=== PATIENT | female | born 1975 | race Caucasian/White ===

== ENCOUNTER → 2016-09-23 | Outpatient (REF) | payer OTHER | LOC: M LAB REF 10:22 | PROVIDERS: ATTEND Physician Assistant | DX: J03.90 Acute tonsillitis, unspecified (principal) ==

== ENCOUNTER → 2019-08-02 | Outpatient (REF) | payer OTHER | LOC: M LAB REF 13:01 | PROVIDERS: ATTEND Family Medicine | DX: Z12.4 Encounter for screening for malignant neoplasm of cervix (principal) | CPT/HCPCS: 87624; G0123 ==

== ENCOUNTER → 2020-08-07 | Outpatient (CLI) | payer OTHER | LOC: M LABSMTC 14:27 | PROVIDERS: ATTEND Family Medicine | DX: Z20.822 Contact with and (suspected) exposure to COVID-19 (principal) ==

== ENCOUNTER 2020-11-01 11:56 | Emergency (ER) | payer OTHER ==
[~2020-11-01] VITALS: Ht 162.6 cm; Wt 88.6 kg
[2020-11-01] MEDS ORDERED: FLUO40CA (12:06)
[2020-11-01] MEDS ORDERED: GABA-282 (12:06)
[2020-11-01] MEDS ORDERED: ALBU8.5H (12:06)
[2020-11-01] MEDS ORDERED: FLUORESCEIN OPHTH 1 MG STRIP OD ONE (13:55)
[2020-11-01] MEDS ORDERED: TETRACAINE 0.5% OPHTH SOLN 4ML OD ONE (13:55)
[2020-11-01] MEDS ORDERED: BOOSTRIX/ADACEL VACCINE (DIPHTH/PERTUSS/ACELL/TETANUS) 0.5ML SYR IM ONE (14:30)
[2020-11-01] MEDS ORDERED: IBUPROFEN 800 MG TAB PO ONE (14:30)
[2020-11-01] MEDS ORDERED: CIPR0.3S6 OD (15:14)
[2020-11-01] MEDS ORDERED: ERYT5OIN25 OD (15:57)
[2020-11-01 16:10] VITALS: BP 148/91
== END 2020-11-01 16:14 | disposition home or self-care (01) ==
LOC: M ED 11:56
DX: S05.01XA Injury of conjunctiva and corneal abrasion without foreign body, right eye, initial encounter (principal); W54.8XXA Other contact with dog, initial encounter; Y92.9 Unspecified place or not applicable; Y93.9 Activity, unspecified; Y99.9 Unspecified external cause status; Z88.1 Allergy status to other antibiotic agents; Z88.2 Allergy status to sulfonamides; Z88.6 Allergy status to analgesic agent; Z88.8 Allergy status to other drugs, medicaments and biological substances

== ENCOUNTER → 2021-04-19 | Outpatient (REF) | payer OTHER ==
[~2021-04-19] MED LIST: ALBU8.5H; CIPR0.3S6 OD; ERYT5OIN25 OD; FLUO40CA; GABA-282
== END ==
LOC: M LAB REF 17:14
PROVIDERS: ATTEND Family Medicine
DX: N39.0 Urinary tract infection, site not specified (principal)

== ENCOUNTER → 2021-08-11 | Outpatient (CLI) | payer OTHER | LOC: M SOG 15:31 | PROVIDERS: ATTEND Orthopaedic Surgery | DX: M54.50 Low back pain, unspecified (principal) ==

== ENCOUNTER → 2021-08-25 | Outpatient (CLI) | payer OTHER | LOC: M PLAIMG 12:58 | PROVIDERS: ATTEND Orthopaedic Surgery | DX: M51.37 Other intervertebral disc degeneration, lumbosacral region (principal); M51.27 Other intervertebral disc displacement, lumbosacral region; M43.17 Spondylolisthesis, lumbosacral region; M51.16 Intervertebral disc disorders with radiculopathy, lumbar region; M46.96 Unspecified inflammatory spondylopathy, lumbar region; M48.061 Spinal stenosis, lumbar region without neurogenic claudication ==

== ENCOUNTER → 2022-07-26 | Outpatient (CLI) | payer OTHER ==
[2022-07-26 10:31] LABS: BASO % 0.3 % (0.0-1.0); EOS # 0.1 10^3/uL (0.0-0.5); EOS % 0.6 % (0.0-3.0); HEMATOCRIT 42.6 % (36.0-47.0); LYMPH % 29.2 % (24.0-44.0); MEAN CORPUSCULAR HGB CONC 32.9 g/dl (32.0-36.5); MEAN CORPUSCULAR VOLUME 88.4 fl (80.0-96.0); MONO # 0.8 10^3/uL (0.0-0.8); MONO % 7.5 % (2.0-8.0); NEUTROPHILS # 6.4 10^3/uL (1.5-8.5); NEUTROPHILS % 61.8 % (36.0-66.0); PLATELET COUNT, AUTOMATED 263 10^3/uL (150-450); RED BLOOD COUNT 4.82 10^6/uL (4.00-5.40); WHITE BLOOD COUNT 10.3 10^3/uL (4.0-10.0)
[2022-07-26 10:40] LABS: ALBUMIN 3.4 G/DL (3.2-5.2); ALKALINE PHOSPHATASE 65 U/L (46-116); ALT/SGPT 23 U/L (7.0-40); AST/SGOT 13 U/L (<34); BILIRUBIN,TOTAL 0.8 MG/DL (0.3-1.2); BLOOD UREA NITROGEN 14 MG/DL (9-23); CARBON DIOXIDE LEVEL 30 MMOL/L (20-31); CHLORIDE LEVEL 102 MMOL/L (98-107); CHOLESTEROL LEVEL 191 MG/DL (<200); CHOLESTEROL RISK RATIO 4.16 (<5); CREATININE FOR GFR 0.78 MG/DL (0.55-1.30); GLOMERULAR FILTRATION RATE > 60.0 (>58); GLUCOSE, FASTING 83 MG/DL (60-100); HDL CHOLESTEROL 45.9 MG/DL (>40); LDL CHOLESTEROL 120.7 MG/DL (<100); NON-HDL-C 145 MG/DL; POTASSIUM SERUM 4.2 MMOL/L (3.5-5.1); SODIUM LEVEL 138 MMOL/L (136-145); TOTAL PROTEIN 6.7 G/DL (5.7-8.2); TRIGLYCERIDES LEVEL 122 MG/DL (<150)
[2022-07-26 10:42] LABS: THYROID STIMULATING HORMONE 1.489 uIU/ML (0.55-4.78); TOTAL 25(OH) VITAMIN D 20.8 NG/ML (20.0-100.0)
== END ==
LOC: M PLALAB 08:32
PROVIDERS: ATTEND Nurse Practitioner Family
DX: R53.83 Other fatigue (principal); R63.5 Abnormal weight gain

== ENCOUNTER → 2022-12-16 | Outpatient (CLI) | payer OTHER ==
[~2022-12-16] MED LIST changes: +CIPR0.3S37 OD; -CIPR0.3S6 OD
== END ==
LOC: M PLAIMG 06:36
DX: M54.50 Low back pain, unspecified (principal)

== ENCOUNTER → 2023-04-24 | Outpatient (CLI) | payer OTHER | LOC: M SLEEP HO 10:43 | PROVIDERS: ATTEND Nurse Practitioner Family | DX: R40.0 Somnolence (principal) ==

== ENCOUNTER → 2023-05-11 | Outpatient (CLI) | payer OTHER ==
[2023-05-11 12:49] LABS: BASO % 0.3 % (0.0-1.0); EOS # 0.1 10^3/uL (0.0-0.5); EOS % 0.7 % (0.0-3.0); HEMATOCRIT 41.6 % (36.0-47.0); HEMOGLOBIN 13.8 g/dl (12.0-15.5); LYMPH # 2.9 10^3/uL (1.5-5.0); LYMPH % 29.6 % (24.0-44.0); MEAN CORPUSCULAR HEMOGLOBIN 29.2 pg (27.0-33.0); MEAN CORPUSCULAR HGB CONC 33.2 g/dl (32.0-36.5); MEAN CORPUSCULAR VOLUME 87.9 fl (80.0-96.0); MONO # 0.6 10^3/uL (0.0-0.8); MONO % 6.2 % (2.0-8.0); NEUTROPHILS % 62.8 % (36.0-66.0); PLATELET COUNT, AUTOMATED 278 10^3/uL (150-450); RED BLOOD COUNT 4.73 10^6/uL (4.00-5.40); WHITE BLOOD COUNT 9.6 10^3/uL (4.0-10.0)
[2023-05-11 13:17] LABS: FOLLICLE STIMULATING HORMONE 2.7 mIU/ML
[2023-05-11 13:18] LABS: PROLACTIN 12.02 NG/ML; THYROID STIMULATING HORMONE 2.648 uIU/ML (0.55-4.78)
[2023-05-11 13:19] LABS: FREE T4 0.93 NG/DL (0.89-1.76)
== END ==
LOC: M LAB 08:03 → M PLALAB 08:03
PROVIDERS: ATTEND Nurse Practitioner Family
DX: N92.6 Irregular menstruation, unspecified (principal)

== ENCOUNTER → 2023-05-12 | Outpatient (CLI) | payer OTHER | LOC: M RAD 10:23 | PROVIDERS: ATTEND Nurse Practitioner Family | DX: N92.6 Irregular menstruation, unspecified (principal); N88.8 Other specified noninflammatory disorders of cervix uteri; D25.9 Leiomyoma of uterus, unspecified ==

== ENCOUNTER → 2023-06-13 | Outpatient (CLI) | payer OTHER | LOC: M SLEEP 20:00 | PROVIDERS: ATTEND Nurse Practitioner Family | DX: G47.33 Obstructive sleep apnea (adult) (pediatric) (principal) ==

== ENCOUNTER → 2023-11-14 | Outpatient (CLI) | payer OTHER ==
[~2023-11-14] MED LIST changes: +BUPR-71 PO; -FLUO40CA; +FLUO40CA PO; -GABA-282; +GABA-282 PO; +LOSA25TA13 PO; +MONT10TA97 PO; +NORE0.353 PO; +PRAM0.123 PO
[2023-11-14 11:14] LABS: APPEARANCE, URINE HAZY (CLEAR); BACTERIA, URINE AUTO NEGATIVE (NEGATIVE); BASO % 0.3 % (0.0-1.0); BILIRUBIN, URINE AUTO NEGATIVE (NEGATIVE); BLOOD, URINE BLOOD 1+ (NEGATIVE); COLOR, URINE YELLOW (YELLOW); EOS # 0.1 10^3/uL (0.0-0.5); EOS % 0.7 % (0.0-3.0); GLUCOSE, URINE (UA) AUTO NEGATIVE (NEGATIVE); HEMATOCRIT 31.3 % (36.0-47.0); HEMOGLOBIN 10.2 g/dl (12.0-15.5); KETONE, URINE AUTO NEGATIVE (NEGATIVE); LEUKOCYTE ESTERASE, URINE AUTO NEGATIVE (NEGATIVE); LYMPH # 2.1 10^3/uL (1.5-5.0); LYMPH % 31.9 % (24.0-44.0); MEAN CORPUSCULAR HEMOGLOBIN 29.5 pg (27.0-33.0); MEAN CORPUSCULAR HGB CONC 32.6 g/dl (32.0-36.5); MEAN CORPUSCULAR VOLUME 90.5 fl (80.0-96.0); MONO # 0.5 10^3/uL (0.0-0.8); MONO % 7.3 % (2.0-8.0); MUCUS, URINE SMALL (NEGATIVE); NEUTROPHILS % 59.4 % (36.0-66.0); NITRITE, URINE AUTO NEGATIVE (NEGATIVE); PLATELET COUNT, AUTOMATED 266 10^3/uL (150-450); PROTEIN, URINE AUTO NEGATIVE (NEGATIVE); RBC, URINE AUTO 2 /HPF (0-3); RED BLOOD COUNT 3.46 10^6/uL (4.00-5.40); SPECIFIC GRAVITY URINE AUTO 1.024 (1.002-1.035); SQUAMOUS EPITHELIAL CELL UR AU 2 /HPF (0-6); UROBILINOGEN, URINE AUTO 0.2 mg/dL (0.0-2.0); WBC, URINE AUTO 2 /HPF (0-3); WHITE BLOOD COUNT 6.7 10^3/uL (4.0-10.0)
[2023-11-14 11:40] LABS: ALBUMIN 3.3 G/DL (3.2-5.2); ALKALINE PHOSPHATASE 61 U/L (46-116); ALT/SGPT 24 U/L (7.0-40); AST/SGOT 15 U/L (<34); BILIRUBIN,TOTAL 0.6 MG/DL (0.3-1.2); BLOOD UREA NITROGEN 17 MG/DL (9-23); CALCIUM LEVEL 8.9 MG/DL (8.5-10.1); CARBON DIOXIDE LEVEL 28 MMOL/L (20-31); CHLORIDE LEVEL 102 MMOL/L (98-107); CHOLESTEROL LEVEL 171 MG/DL (<200); CHOLESTEROL RISK RATIO 3.59 (<5); CREATININE FOR GFR 0.84 MG/DL (0.55-1.30); GLOMERULAR FILTRATION RATE > 60.0 (>58); GLUCOSE, FASTING 86 MG/DL (60-100); HDL CHOLESTEROL 47.6 MG/DL (>40); LDL CHOLESTEROL 100.4 MG/DL (<100); NON-HDL-C 123.4 MG/DL; POTASSIUM SERUM 4.1 MMOL/L (3.5-5.1); SODIUM LEVEL 137 MMOL/L (136-145); TOTAL PROTEIN 6.3 G/DL (5.7-8.2); TRIGLYCERIDES LEVEL 115 MG/DL (<150)
[2023-11-14 11:42] LABS: FREE T4 0.95 NG/DL (0.89-1.76); THYROID STIMULATING HORMONE 1.609 uIU/ML (0.55-4.78)
== END ==
LOC: M PLALAB 08:34
PROVIDERS: ATTEND Nurse Practitioner Family
DX: Z01.818 Encounter for other preprocedural examination (principal); I10 Essential (primary) hypertension

== ENCOUNTER 2023-12-01 10:09 | Observation (INO) | payer OTHER ==
[2023-12-01] VITALS (8 sets, daily range): BP systolic 115–138; BP diastolic 64–80; TEMP 97.4–98.1; O2SAT 96–99
[~2023-12-01] VITALS: Ht 160 cm; Wt 94.7 kg
[~2023-12-01 10:09] MED LIST changes: +KETOROLAC 60MG 2ML VIAL As Ordered ONE; +LIDOCAINE 2% 100MG/5ML SDV (FOR ANES.) As Ordered ONE; +METOCLOPRAMIDE INJ 10MG/2ML VIAL As Ordered ONE; +MIDAZOLAM INJ 2MG/2ML VIAL As Ordered ONE; +ONDANSETRON 4MG 2ML VIAL As Ordered ONE; +ROCURONIUM BROMIDE 50MG/5ML VIAL As Ordered ONE; +SUGAMMADEX SODIUM 500 MG/5 ML VIAL (BRIDION) As Ordered ONE; +dexmedeTOMIDine (4MCG/ML)200MCG/50ML BTL (PRECEDEX) As Ordered ONE; +fentaNYL 250 MCG/5 ML INJECTION As Ordered ONE; +propofoL 200 MG/20 ML VIAL As Ordered ONE
[2023-12-01 10:45] LABS: HEMATOCRIT 34.3 % (36.0-47.0); HEMOGLOBIN 11.3 g/dl (12.0-15.5); MEAN CORPUSCULAR HEMOGLOBIN 28.3 pg (27.0-33.0); MEAN CORPUSCULAR HGB CONC 32.9 g/dl (32.0-36.5); PLATELET COUNT, AUTOMATED 308 10^3/uL (150-450); RED BLOOD COUNT 3.99 10^6/uL (4.00-5.40); WHITE BLOOD COUNT 9.3 10^3/uL (4.0-10.0)
[2023-12-01] MEDS ORDERED: CEFD1CAP9 PO (10:46)
[2023-12-01] MEDS ORDERED: LR 1,000 ML IV SCH ×4 (10:55→14:15)
[2023-12-01] MEDS: ceFAZolin SOD 2 GM in IV 1 EA IV ONE (11:30)
[2023-12-01] MEDS ORDERED: ACETAMINOPHEN 1000MG 100ML IV BAG As Ordered ONE (11:45)
[2023-12-01] MEDS ORDERED: HYDROMORPHONE HCL 0.5 MG/ 0.5 ML SYRINGE IV PRN (13:55)
[2023-12-01] MEDS ORDERED: fentaNYL 100 MCG/2 ML INJECTION IV PRN (13:55)
[2023-12-01] MEDS ORDERED: oxyCODONE 5MG TAB PO PRN (13:55)
[2023-12-01] MEDS ORDERED: ONDANSETRON 4MG 2ML VIAL IV PRN ×2 (13:55→14:15)
[2023-12-01] MEDS ORDERED: PERCOCET 5MG/325MG TAB PO PRN ×2 (14:15)
[2023-12-01] MEDS ORDERED: diphenhydrAMINE 25MG CAP PO PRN (15:40)
[2023-12-01] MEDS ORDERED: ALBUTEROL 90 MCG/ACT 8GM HFA INHALER INH PRN (15:40)
[2023-12-01] MEDS ORDERED: PRAMIPEXOLE (MIRAPEX) 0.125 MG TAB PO SCH ×2 (16:00→21:00)
[2023-12-01] MEDS: traMADol 50 MG TAB PO PRN (16:16)
[2023-12-01] MEDS: KETOROLAC 30 MG/ML 1ML VIAL IV PRN (19:49)
[2023-12-01] MEDS ORDERED: buPROPion 75 MG TAB PO SCH (21:00)
[2023-12-01] MEDS: DOCUSATE SODIUM 100MG CAPSULE PO SCH (21:09)
[2023-12-01] MEDS: ceFAZolin SOD 1 GM in D5W MINI-BAG PLUS 50 ML IV SCH (21:10)
[2023-12-01] MEDS: LOSARTAN 25 MG TAB PO SCH (22:00)
[2023-12-01] MEDS: MONTELUKAST 10 MG TAB PO SCH (22:09)
[2023-12-01] MEDS: FLUoxetine 20MG CAP PO SCH (22:09)
[2023-12-01] MEDS: PRAMIPEXOLE (MIRAPEX) 0.125 MG TAB PO SCH (22:29)
[2023-12-01] MEDS: buPROPion **SR TABLET** (ZYBAN) 150MG PO SCH (22:30)
[2023-12-02 02:00] VITALS: BP 111/65; TEMP 97.5; O2SAT 97
[2023-12-02 06:00] VITALS: BP 113/58; TEMP 98.4; O2SAT 98
[2023-12-02 07:09] LABS: HEMATOCRIT 29.8 % (36.0-47.0); HEMOGLOBIN 9.4 g/dl (12.0-15.5); MEAN CORPUSCULAR HEMOGLOBIN 27.8 pg (27.0-33.0); MEAN CORPUSCULAR HGB CONC 31.5 g/dl (32.0-36.5); MEAN CORPUSCULAR VOLUME 88.2 fl (80.0-96.0); PLATELET COUNT, AUTOMATED 266 10^3/uL (150-450); RED BLOOD COUNT 3.38 10^6/uL (4.00-5.40); WHITE BLOOD COUNT 13.3 10^3/uL (4.0-10.0)
[2023-12-02] MEDS ORDERED: LOSARTAN 25 MG TAB PO SCH ×2 (09:00)
[2023-12-02] MEDS ORDERED: MONTELUKAST 10 MG TAB PO SCH (09:00)
[2023-12-02] MEDS ORDERED: buPROPion 75 MG TAB PO SCH (09:00)
[2023-12-02] MEDS ORDERED: TRAM50TA2 PO (09:48)
[2023-12-02] MEDS ORDERED: IBUP-1022 PO (09:48)
[2023-12-02] MEDS ORDERED: MACR100C43 PO (09:50)
[2023-12-02] MEDS ORDERED: COLA100C5 PO (09:51)
[2023-12-02 10:00] VITALS: BP 114/66; TEMP 98.7; O2SAT 95
== END 2023-12-02 11:45 | disposition home or self-care (01) ==
LOC: M SDC 10:09 → M RR INP 14:15 → M OBS 15:26
PROVIDERS: ADMIT Specialist; ATTEND Specialist
DX: D25.9 Leiomyoma of uterus, unspecified (principal); N73.6 Female pelvic peritoneal adhesions (postinfective); N99.71 Accidental puncture and laceration of a genitourinary system organ or structure during a genitourinary system procedure; I10 Essential (primary) hypertension; F41.9 Anxiety disorder, unspecified; F32.A Depression, unspecified; G47.33 Obstructive sleep apnea (adult) (pediatric); Z79.51 Long term (current) use of inhaled steroids; Z79.899 Other long term (current) drug therapy; Z88.2 Allergy status to sulfonamides; Z88.8 Allergy status to other drugs, medicaments and biological substances; Z88.0 Allergy status to penicillin
CPT/HCPCS: 36415; 58571; 85027; 86850; 86900; 86901; 88307; 96365; 96366; 96375; J0131; J0665; J0690; J1100; J1885; J2250; J2405; J2765; J3010; S0106; S2900

== ENCOUNTER → 2024-10-07 | Outpatient (CLI) | payer OTHER ==
[~2024-10-07] MED LIST changes: +CEFD1CAP9 PO; +COLA100C5 PO; +GABA-1172 PO; -GABA-282 PO; +IBUP-1022 PO; -KETOROLAC 60MG 2ML VIAL As Ordered ONE; -LIDOCAINE 2% 100MG/5ML SDV (FOR ANES.) As Ordered ONE; +MACR100C43 PO; -METOCLOPRAMIDE INJ 10MG/2ML VIAL As Ordered ONE; -MIDAZOLAM INJ 2MG/2ML VIAL As Ordered ONE; -ONDANSETRON 4MG 2ML VIAL As Ordered ONE; -ROCURONIUM BROMIDE 50MG/5ML VIAL As Ordered ONE; -SUGAMMADEX SODIUM 500 MG/5 ML VIAL (BRIDION) As Ordered ONE; +TRAM50TA2 PO; -dexmedeTOMIDine (4MCG/ML)200MCG/50ML BTL (PRECEDEX) As Ordered ONE; -fentaNYL 250 MCG/5 ML INJECTION As Ordered ONE; -propofoL 200 MG/20 ML VIAL As Ordered ONE
[2024-10-07 10:26] LABS: BASO % 0.4 % (0.0-1.0); EOS # 0.1 10^3/uL (0.0-0.5); EOS % 0.6 % (0.0-3.0); HEMATOCRIT 40.5 % (36.0-47.0); HEMOGLOBIN 12.8 g/dl (12.0-15.5); LYMPH # 2.3 10^3/uL (1.5-5.0); LYMPH % 28.9 % (24.0-44.0); MEAN CORPUSCULAR HEMOGLOBIN 26.9 pg (27.0-33.0); MEAN CORPUSCULAR HGB CONC 31.6 g/dl (32.0-36.5); MEAN CORPUSCULAR VOLUME 85.1 fl (80.0-96.0); MONO # 0.6 10^3/uL (0.0-0.8); MONO % 7.1 % (2.0-8.0); NEUTROPHILS % 62.7 % (36.0-66.0); PLATELET COUNT, AUTOMATED 282 10^3/uL (150-450); RED BLOOD COUNT 4.76 10^6/uL (4.00-5.40); WHITE BLOOD COUNT 7.9 10^3/uL (4.0-10.0)
[2024-10-07 10:49] LABS: ALBUMIN 3.5 G/DL (3.2-5.2); ALKALINE PHOSPHATASE 65 U/L (35-104); ALT/SGPT 16 U/L (7.0-40); AST/SGOT 9 U/L (<34); BILIRUBIN,TOTAL 0.6 MG/DL (0.3-1.2); BLOOD UREA NITROGEN 15 MG/DL (9-23); CALCIUM LEVEL 9.3 MG/DL (8.5-10.1); CARBON DIOXIDE LEVEL 28 MMOL/L (20-31); CHLORIDE LEVEL 105 MMOL/L (98-107); CHOLESTEROL LEVEL 162 MG/DL (<200); CHOLESTEROL RISK RATIO 3.45 (<5); CREATININE FOR GFR 0.92 MG/DL (0.55-1.30); GLOMERULAR FILTRATION RATE > 60.0 (>58); GLUCOSE, FASTING 83 MG/DL (60-100); HDL CHOLESTEROL 46.9 MG/DL (>40); LDL CHOLESTEROL 97.7 MG/DL (<100); NON-HDL-C 115.1 MG/DL; SODIUM LEVEL 142 MMOL/L (136-145); TOTAL PROTEIN 6.9 G/DL (5.7-8.2); TRIGLYCERIDES LEVEL 87 MG/DL (<150)
== END ==
LOC: M PLALAB 08:16
PROVIDERS: ATTEND Nurse Practitioner Family
DX: I10 Essential (primary) hypertension (principal)

== ENCOUNTER → 2025-01-30 | Outpatient (CLI) | payer OTHER | LOC: M PLARAD 12:33 | PROVIDERS: ATTEND Nurse Practitioner Family | DX: R22.2 Localized swelling, mass and lump, trunk (principal); M48.54XA Collapsed vertebra, not elsewhere classified, thoracic region, initial encounter for fracture; M47.817 Spondylosis without myelopathy or radiculopathy, lumbosacral region; M51.27 Other intervertebral disc displacement, lumbosacral region; M47.816 Spondylosis without myelopathy or radiculopathy, lumbar region ==